=== PATIENT | female | born 2005 | race African-American/Black ===

== ENCOUNTER 2024-02-22 14:06 | Emergency (ER) | payer OTHER, SELFPAY ==
[2024-02-22 14:12] VITALS: BP 110/73
--- NOTE | 2024-02-22 16:52 | ED.GENMED ---
History of Present Illness
General
Chief Complaint: Back Pain
Source: patient
Time Seen by Provider: 02/22/24 16:29
History of Present Illness
History of Present Illness:
This patient is a 18-year-old female presents emergency department with multiple complaints that have been going on for about 3 months. She has not seen a doctor about this. She is requesting either blood work or an x-ray of her 'whole body' in
order to determine the etiology. She describes pain in her legs, arms, and sometimes back. This pain is episodic, without provoking or relieving factors, lasting minutes or sometimes hours at a time. It can involve just 1 extremity at a time. It
is not movement related/positional. It is not associated with weakness, numbness, tingling. She denies abdominal pain, chest pain, fever, chills, nausea, vomiting, urinary symptoms, or other complaints. Her last menstruation was January 31.
Patient does have a primary care doctor
Past History
Past History
ED Past Medical History: None
ED Past Surgical History: None
Social History
Tobacco: Non-smoker
Alcohol: None
Drug: None
Personal: Partner
Phy Exam
Physical Exam
Physical Exam:
GENERAL: Alert , in no apparent distress,[employer] drink and watching a movie on her ipad, comfortable, nontoxic, pleasant
EYE: pupils equal and reactive
NECK: Supple, no significant adenopathy.
ENT: o/p clr, mmm.
CARDIAC: Regular rate and rhythm .
LUNGS: Clear breath sounds bilaterally, no acute respiratory distress, no wheezes/rales/rhonchi
ABDOMEN: Soft, without focal tenderness, no r/g, no cvat
NEUROLOGICAL: Alert and oriented, no focal neuro deficits
SKIN: Warm and dry, skin intact.
MUSCULOSKELETAL: No edema, well perfused. Full range of motion of extremities without difficulty
PSYCH: Normal and appropriate interaction.
Back nontender to palpation throughout spine, no bruising or swelling noted
Course
Vital Signs
Initial and Last Documented VS:
Initial Vital Signs
Temp Pulse Resp BP Pulse Ox
98.1 F 77 16 110/73 99
02/22/24 14:12 02/22/24 14:12 02/22/24 14:12 02/22/24 14:12 02/22/24 14:12
Last Documented Vital Signs
Temp Pulse Resp BP Pulse Ox
98.1 F 77 16 110/73 99
02/22/24 14:12 02/22/24 14:12 02/22/24 14:12 02/22/24 14:12 02/22/24 14:12
*Critical Care Note
Total Time (30-74mins, 75-104mins- exclusive of procedures): Not Applicable
Update Note
Update Note:
Patient presents to the Emergency Department with extremity and back pain
Number and Complexity of Problems Addressed at the Encounter
� Chronic conditions affecting care:
� Acute Exacerbation and/or Progression of Chronic Illness:
� Differential Diagnosis includes: But not limited to arthritis, muscle strain, nonspecific pain, tendinitis, etc.
Amount and/or Complexity of Data to be Reviewed and Analyzed
� I performed an independent evaluation of and my interpretation is:
EKG:
CT:
Xrays:
Laboratory Studies:
Other:
� Review of other/old records reveals:
� Clinical information was obtained by an independent historian:
� Prescriptions/Medications Considered but not given:
� Further testing considered but not performed:
Risk of Complications and/or Morbidity or Mortality of Patient Management
� Social determinants of health affecting care:
� Discussion with other providers (PCP, Hospitalists, Consultants, etc):
� Escalation of care including admission/observation vs risk of discharge considered: Of note, history and physical done with language line as patient's primary language is [place]. I discussed with her the importance of
follow-up with her primary care doctor. Her exam and vital signs are unremarkable here. I do not suspect an emergent/urgent etiology of her symptoms yet she does need an outpatient evaluation. In the meantime I recommended that she take ibuprofen
as directed for her symptoms. Discussed with her also reasons to return to the ER.
ED Attending Note
-
Portions of this chart may have been created with voice recognition software.� Occasional wrong word or��sound alike� substitutions may have occurred due to the inherent limitations of voice recognition software.
Discharge Plan
Departure
Patient Disposition: Home (Routine Discharge)
Date of Disposition: 02/22/24
Time of Disposition: 16:52
Patient with high blood pressure during this ER visit?: No
Condition: Good
Discharge Problem:
Back pain
Instructions: Low Back Pain (DC)
Prescriptions:
No Action
cefdinir 300 mg capsule
300 mg PO Q12H Qty: 14 0RF
doxycycline monohydrate 100 mg capsule
100 mg PO BID 7 Days Qty: 14 0RF
metronidazole 500 mg tablet
500 mg PO BID 7 Days Qty: 14 0RF
fluticasone propionate [24 Hour Allergy Relief] 50 mcg/actuation spray,suspension
1 spray intranasal BID Qty: 16 0RF
Referrals:
NONE,* [Family Provider] -
Activity Restrictions/Additional Instructions:
PLEASE SEE YOUR DOCTOR THIS WEEK. TAKE MOTRIN (IBUPROFEN) DIRECTED FOR PAIN. IF YOU DEVELOP FEVER, VOMIITNG, CHEST PAIN, TROUBLE BREATHING, PERSISTENT PAIN, SWELLING, OR OTHER WORRISOME SIGNS, GO TO THE ER IMMEDIATELY!
Interventions
Interventions:
*Risk Screen - Suicide Last Done: 02/22/24 14:12
*General Assessment Last Done: 02/22/24 14:12
*Neglect/Abuse Screening Last Done: 02/22/24 14:12
*ED COVID-19 Vaccine History Last Done: 02/22/24 14:12
*Nursing Disposition Last Done: 02/22/24 17:14
ED-Musculoskeletal Assessment Last Done: 02/22/24 17:00
Discharge Date and Time
Discharge Date/Time: 02/22/24 17:14
Print Language: CZECH
== END 2024-02-22 17:14 | disposition home or self-care (01) ==
LOC: EMR 14:06
PROVIDERS: EMERGENCY PHYSICIAN Emergency Medicine
DX: M54.9 Dorsalgia, unspecified (principal)
CPT/HCPCS: 99283